=== PATIENT | male | born 1950 | race Hispanic/Latino ===

== ENCOUNTER 2019-03-04 12:34 | Emergency (ER) | payer OTHER, MEDICAID ==
[2019-03-04 12:45] VITALS: RESP 20; O2SAT 99
--- NOTE | 2019-03-04 13:08 | C.PDOC ---
History Of Present Illness The patient is a 68-year-old male who was sent to the ED by Dr.Y Denis's office for evaluation. Patient states he had appointment to follow up in Dr. Denis's office today. Patient was told that the office does not see wheelchair patients and was referred to the ED for further evaluation. Patient denies fever, chills, or any other medical complaints at this time. Chief Complaint (Nursing): Medical Clearance History Per: Patient History/Exam Limitations: no limitations Onset/Duration Of Symptoms: Hrs Current Symptoms Are (Timing): Still Present Severity: Mild Additional History Per: Patient Past Medical History Reviewed: Historical Data, Nursing Documentation, Vital Signs Vital Signs: Last Vital Signs Temp 99.1 F 03/04/19 12:43 Pulse 82 03/04/19 12:43 Resp 20 03/04/19 12:43 BP 129/77 03/04/19 12:43 Pulse Ox 99 03/04/19 12:43 - Medical History PMH: No Chronic Diseases Surgical History: No Surg Hx Family History: States: Unknown Family Hx Review Of Systems Constitutional: Negative for: Fever, Chills Genitourinary: Positive for: Incontinence Physical Exam - Physical Exam Appears: Non-toxic, No Acute Distress Skin: Normal Color, Warm, Dry Head: Atraumatic, Normacephalic Oral Mucosa: Moist Neck: Supple Cardiovascular: Rhythm Regular, No Murmur Respiratory: Normal Breath Sounds Extremity: Capillary Refill (less than 2 seconds ) Neurological/Psych: Oriented x3, Normal Speech, Normal Cognition Gait: Unable To Assess ED Course And Treatment O2 Sat by Pulse Oximetry: 99 (on RA ) Pulse Ox Interpretation: Normal Progress Note: Patient presented to ED in Wheelchair for evaluation by Dr Filiberto Dahl. Dr Dahl evaluated patient and request discharge Reassessment Condition: Unchanged - Physician Consult Information Physician Contacted: Jennifer Denis Outcome Of Conversation: will evaluate in ED Disposition Discussed With : Jennifer Denis Doctor Will See Patient In The: Hospital - Disposition Referrals: Jennifer Denis MD [Staff Provider] - Disposition: HOME/ ROUTINE Disposition Time: 15:00 Condition: STABLE Additional Instructions: Follow up with your PMD for further evaluation Instructions: Benign Prostatic Hyperplasia (Enlarged Prostate) Forms: [employer] (Faroese) - POA Present On Arrival: None - Clinical Impression Clinical Impression: BPH (benign prostatic hyperplasia) - PA / RETAIL PHARM[employer]Y MANAGER / Resident Statement MD/DO has reviewed & agrees with the documentation as recorded. - Scribe Statement The provider has reviewed the documentation as recorded by the Scribe (Chayo Dumont) All medical record entries made by the Scribe were at my direction and personally dictated by me. I have reviewed the chart and agree that the record accurately reflects my personal performance of the history, physical exam, medical decision making, and the department course for this patient. I have also personally directed, reviewed, and agree with the discharge instructions and disposition.
[2019-03-04 15:03] VITALS: BP 132/75; PULSE 86; TEMP 98.9
--- NOTE | 2019-03-04 23:55 | C.PDOC ---
History Of Present Illness UROLOGY CONSULTATION IMP: incontinence BPH Incomplete bladder emptying Parkinson's Disease Full note tf YS Time Seen by Provider: 03/04/19 12:58 Chief Complaint (Nursing): Medical Clearance Past Medical History Vital Signs: Last Vital Signs Temp 98.9 F 03/04/19 15:02 Pulse 86 03/04/19 15:02 Resp 20 03/04/19 15:02 BP 132/75 03/04/19 15:02 Pulse Ox 99 03/04/19 16:43 - Medical History PMH: No Chronic Diseases, Benign Prostatic Hyperplasia, Parkinson's Disease, Schizophrenia Surgical History: No Surg Hx Family History: States: Unknown Family Hx - Social History Hx Alcohol Use: No Hx Substance Use: No - Immunization History Hx Tetanus Toxoid Vaccination: No Hx Influenza Vaccination: Yes Hx Pneumococcal Vaccination: No ED Course And Treatment O2 Sat by Pulse Oximetry: 99 (on RA ) Disposition - Disposition Referrals: Jennifer Denis MD [Staff Provider] - Disposition: HOME/ ROUTINE Disposition Time: 14:30 Condition: STABLE Additional Instructions: Follow up with your PMD for further evaluation Instructions: Benign Prostatic Hyperplasia (Enlarged Prostate) Forms: [facility] (Welsh) - Clinical Impression Clinical Impression: BPH (benign prostatic hyperplasia)
== END 2019-03-04 15:55 | disposition home or self-care (01) ==
LOC: C.ER 12:34
DX: N40.0 Benign prostatic hyperplasia without lower urinary tract symptoms (principal); G20 Parkinson's disease